=== PATIENT | male | born 1960 | race Caucasian/White ===

== ENCOUNTER → 2016-12-07 | Outpatient (CLI) | payer BC, OTHER ==
--- NOTE | 2016-12-07 13:02 | MRI ---
Study: MRI of the Right Knee. Indication: Fall injury 3 weeks ago of persistent diffuse knee pain. Technique: Multiplanar, multi sequence MRI of the right knee was obtained without intravenous contrast. Comparison: None. Findings: ACL, PCL, MCL, and lateral collateral ligament complex intact. Minimal degenerative signal changes throughout the medial and lateral menisci without evidence of meniscal tearing. Subtle areas of grade 1/2 chondral thinning and mild surface irregularity central weight-bearing portions medial and lateral knee compartments. 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 Patellar tendon intact. Trace lateral patellar subluxation. Minimal edema superolateral aspect of Hoffa's fat pad which can indicate sequela of patellofemoral maltracking. No high-grade chondral defect patellofemoral compartment. Tiny knee effusion. No acute fracture or osseous contusion. Impression: Mild degenerative signal changes medial and lateral menisci without evidence of meniscal tearing. Mild medial and lateral compartment chondrosis. 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 Subtle findings which can be seen with patellofemoral maltracking. Tiny knee effusion. Electronically signed by: Guillermo Gonzalez MD 12/07/2016 13:01
== END | disposition home or self-care (01) ==
LOC: MRI 10:04
PROVIDERS: ATTEND Family Medicine
DX: M25.561 Pain in right knee (principal)

== ENCOUNTER 2020-05-15 08:54 | Emergency (ER) | payer BC ==
[2020-05-15] MEDS ORDERED: CLINDAMYCIN IV 900MG 900 MG in PREMIX BAG 1 BAG IVPB ONE (09:19)
[2020-05-15] MEDS ORDERED: ONDANSETRON INJ 4 MG/2 ML VIAL IV ONE (09:19)
[2020-05-15] MEDS ORDERED: MORPHINE SULFATE INJ 10 MG/ML VIAL IV ONE (09:19)
--- NOTE | 2020-05-15 09:22 | ED.PDOC ---
History of Present Illness - General Chief Complaint: General Stated Complaint: left leg pain/redness Time Seen by Provider: 05/15/20 08:57 Source: patient, RN notes reviewed, Vital Signs reviewed Exam Limitations: no limitations - History of Present Illness Initial Comments: Patient is a 59-year-old male who presents with 3-week history of left lower leg pain, redness and swelling. He denies any injury or trauma to the area. He has been seen by his PCP with x-rays of the left leg that were negative and started on an anti-inflammatory medication and has been scheduled for an MRI on Tuesday to further evaluate. States that the pain has gotten worse so came to ED for evaluation today. Reports pain and swelling to the anterior left lower leg that is worse with palpation and weightbearing. He denies fever, cough, chest pain, shortness of breath, nausea, vomiting or any history of blood clots. Allergies/Adverse Reactions: Allergies NO KNOWN ALLERGY Allergy (Verified 05/15/20 09:20) Home Medications: Ambulatory Orders Esomeprazole Magnesium [Nexium] 40 mg PO BEDTIME 03/21/15 Aspirin [Aspirin Low Strength] 81 mg PO 05/15/20 Clindamycin HCl 300 mg PO Q6H 10 Days #80 cap 05/15/20 Review of Systems - Review of Systems Constitutional: Denies: chills, fever, weakness EENTM: Denies: nose congestion, throat pain Respiratory: Denies: cough, orthopnea, short of breath Cardiology: Denies: chest pain, palpitations, syncope Gastrointestinal/Abdominal: Denies: abdominal pain, nausea, vomiting Musculoskeletal: States: other - Left tib-fib pain, redness and swelling. Denies: back pain, neck pain Skin: States: other - See HPI Hematologic/Lymphatic: Denies: blood clots, easy bleeding, easy bruising All other Systems: Reviewed and Negative Past Medical History (General) - Patient Medical History Hx Seizures: No Hx Stroke: No Hx Asthma: No Hx of COPD: No Hx Cardiac Disorders: No Hx Congestive Heart Failure: No Hx Pacemaker: No Hx Hypertension: No Hx Diabetes: No Hx Gastroesophageal Reflux: Yes Hx MRSA: Yes - Finger Wound Previously & Neck Wound 2015 MRSA Source:: Wound - Vaccination History Hx Tetanus, Diphtheria Vaccination: No Hx Influenza Vaccination: No Hx Pneumococcal Vaccination: No - Social History Hx Tobacco Use: Yes Hx Alcohol Use: No Hx Substance Use: No Hx Physical Abuse: No Hx Emotional Abuse: No - Activities of Daily Living Hospice Agency (if applicable):: None - Female History Patient is a Female of Child Bearing Age (10 -59 yrs old): No Family Medical History - Family History Father Family History: Unknown Living Status: Unknown Physical Exam - Physical Exam General Appearance: Alert, Comfortable, No apparent distress Neck: non-tender, full range of motion, supple Respiratory: chest non-tender, lungs clear, normal breath sounds, no respiratory distress, no accessory muscle use Cardiovascular/Chest: regular rate, rhythm, no murmur Peripheral Pulses: dorsalis pedis,right: 2+, dorsalis pedis,left: 2+, posterior tibialis,right: 2+, posterior tibialis,left: 2+ Gastrointestinal/Abdominal: non tender, soft, no pulsatile mass Back Exam: no vertebral tenderness Extremity: other - Left medial lower leg has an 8 x 10 area of erythema. There is no induration, fluctuance, bleeding or drainage. He has good distal pulses and cap refills less than 2 seconds. Neurologic: no motor/sensory deficits, alert, normal mood/affect Progress - Progress Progress: 05/15/20 09:25 Patient presents with 3-week history of left lower leg pain, swelling and redness. Differential diagnosis includes DVT, cellulitis, abscess, torn muscle, muscle strain. Will get labs and ultrasound to rule out DVT. Will start IV antibiotics as I think this is likely an infectious cause 05/15/20 15:22 No sign of DVT on ultrasound. Ultrasound images over the affected area are consistent with cellulitis, but no fluid collection is seen to suggest abscess. He does have mild leukocytosis. We will plan to treat for cellulitis and start patient on clindamycin. He has a follow-up appointment scheduled for Tuesday with his PCP where an MRI of the area scheduled at that time. I have given patient strict return precautions for fever or worsening symptoms or other concerns. - Results/Orders Results/Orders: EXAM DESCRIPTION: Venous,Lower Extremity LT: ULTRASOUND. CLINICAL HISTORY: r/o DVT. Left lower extremity. COMPARISON: None Available. TECHNIQUE: Bruce-scale and doppler sonographic evaluation of the deep venous system of the left lower extremity. FINDINGS: Doppler evaluation shows normal color flow and normal phasicity and augmentation of the left common femoral vein, femoral vein, popliteal vein, greater saphenous vein, junction with the CFV. Also normal color flow and normal phasicity and augmentation of the peroneal, and posterior tibial vein. The left lower extremity deep veins were completely compressible; normal occlusion with transducer pressure. Bruce-scale survey showed no echogenic thrombus within these veins. IMPRESSION: 1. Duplex ultrasound evaluation of the left lower extremity deep venous system showing no evidence of thrombosis. 05/15/20 09:19 IV:Start .ONCE Laboratory Results - last 24 hr 05/15/20 05/15/20 09:20 09:20 WBC 11.1 H RBC 4.95 Hgb 14.3 Hct 42.2 MCV 85.2 MCH 28.8 MCHC 33.8 RDW 13.5 Plt Count 258 MPV 8.3 Absolute Neuts (auto) 8.70 H Absolute Lymphs (auto) 1.00 Absolute Monos (auto) 1.20 H Absolute Eos (auto) 0.10 Absolute Basos (auto) 0.10 Neutrophils % 78.8 H Lymphocytes % 9.0 L Monocytes % 10.7 H Eosinophils % 0.7 L Basophils % 0.8 Sodium 136 Potassium 3.9 Chloride 104 Carbon Dioxide 24 Anion Gap 11.9 L BUN 14 Creatinine 0.98 BUN/Creatinine Ratio 14.3 Random Glucose 98 Serum Osmolality 272.4 L Calcium 9.1 Departure - Departure Clinical Impression: Left leg cellulitis Leukocytosis, unspecified Qualifiers: Leukocytosis type: unspecified Qualified Code(s): D72.829 - Elevated white blood cell count, unspecified Time of Disposition: 10:27 Disposition: Discharge to Home or Self Care Condition: Good Departure Forms: ED Discharge - Pt. Copy, Patient Portal Self Enrollment Instructions: Cellulitis (Skin Infection), Adult (DC) Diet: resume usual diet Activity: increase activity as tolerated Referrals: PEPE LUNDBERG MD [Primary Care Provider] - 1-2 Days Prescriptions: Clindamycin HCl 300 mg PO Q6H 10 Days #80 cap Home Medications: Ambulatory Orders Esomeprazole Magnesium [Nexium] 40 mg PO BEDTIME 03/21/15 Aspirin [Aspirin Low Strength] 81 mg PO 05/15/20 Clindamycin HCl 300 mg PO Q6H 10 Days #80 cap 05/15/20 Additional Instructions: Your ultrasound shows no sign of DVT at this time. Ultrasound shows signs of cellulitis to the left lower leg with no abscess. You will need to start your antibiotic today and keep your follow-up appointment with your primary care doctor as scheduled.
--- NOTE | 2020-05-15 10:24 | US ---
EXAM DESCRIPTION: Venous,Lower Extremity LT: ULTRASOUND. CLINICAL HISTORY: r/o DVT. Left lower extremity. COMPARISON: None Available. TECHNIQUE: Bruce-scale and doppler sonographic evaluation of the deep venous system of the left lower extremity. FINDINGS: Doppler evaluation shows normal color flow and normal phasicity and augmentation of the left common femoral vein, femoral vein, popliteal vein, greater saphenous vein, junction with the CFV. Also normal color flow and normal phasicity and augmentation of the peroneal, and posterior tibial vein. The left lower extremity deep veins were completely compressible; normal occlusion with transducer pressure. Bruce-scale survey showed no echogenic thrombus within these veins. IMPRESSION: 1. Duplex ultrasound evaluation of the left lower extremity deep venous system showing no evidence of thrombosis. Electronically signed by: Tre Avitia MD 05/15/2020 10:22 AM CDT
[2020-05-15 11:15] VITALS: BP 127/75; TEMP 97.2; O2SAT 96
== END 2020-05-15 10:50 | disposition home or self-care (01) ==
LOC: ER 08:54
DX: L03.116 Cellulitis of left lower limb (principal); D72.829 Elevated white blood cell count, unspecified; M79.662 Pain in left lower leg; K21.9 Gastro-esophageal reflux disease without esophagitis; Z86.14 Personal history of Methicillin resistant Staphylococcus aureus infection; Z87.891 Personal history of nicotine dependence; Z79.82 Long term (current) use of aspirin; Z79.899 Other long term (current) drug therapy
CPT/HCPCS: 36415; 80048; 85025; 93971; J2270; J2405; J3490

== ENCOUNTER → 2020-05-19 | Outpatient (CLI) | payer BC ==
--- NOTE | 2020-05-19 11:42 | MRI ---
MRI left ankle without contrast INDICATION: Swelling redness loss of sensation TECHNIQUE: Noncontrast MR imaging left foot and ankle FINDINGS: Diffuse soft tissue swelling/edema throughout the foot and ankle. Edema is most pronounced in the dorsum of the foot and throughout the ankle. Findings suggest cellulitis. Very nonspecific. No drainable abscess identified. No tendon rupture. No osseous destructive lesion. 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 No disruption of the Lisfranc ligament complex or widening of the interval. No regional tendon disruption. No acute ligamentous injury. No osteochondral lesion. Ankle mortise is congruent. Syndesmosis is congruent. No definite soft tissue foreign bodies identified. 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 Electronically signed by: Gerard Morocho MD 05/19/2020 11:40 AM CDT
--- NOTE | 2020-05-19 11:46 | MRI ---
MRI left tib-fib/calf without contrast INDICATION: Leg swelling loss of sensation TECHNIQUE: Noncontrast MR imaging left tib-fib FINDINGS: See separate ankle/foot report. Diffuse subcutaneous edema skin thickening and inflammation consistent with cellulitis. Small subcutaneous fluid collection running obliquely along the medial superficial subcutaneous tissues axial STIR images 11 through 23. Early abscess development cannot be excluded in this area. No evidence of osteomyelitis. No acute tendon disruption. No fracture. The small fluid collection measures up to 9 mm in diameter and several centimeters in length. Mild deep muscle edema primarily medial soleus nonspecific. IMPRESSION: Diffuse cellulitis the breasts small developing subcutaneous fluid collection in the medial soft tissues question early abscess Mild deep muscle edema No evidence of osteomyelitis Electronically signed by: Gerard Morocho MD 05/19/2020 11:45 AM CDT
== END ==
LOC: MRI 07:06
PROVIDERS: ATTEND Family Medicine
DX: M62.162 Other rupture of muscle (nontraumatic), left lower leg (principal); L03.116 Cellulitis of left lower limb; M19.072 Primary osteoarthritis, left ankle and foot; R60.9 Edema, unspecified